=== PATIENT | female | born 1945 | race Caucasian/White ===

== ENCOUNTER 2019-07-16 11:18 | Observation (INO) | payer OTHER ==
[~2019-07-16] VITALS: Ht 154.9 cm; Wt 75.0 kg
[~2019-07-16 11:18] MED LIST: ALPR.5 PO; Cyclobenzaprine5 MG PO; GABA300 PO; HYDR1TAB94 PO; IBUP600 PO; Prednisone20 MG PO
[2019-07-16 12:14] LABS: BASOPHILS ABSOLUTE AUTO 0.06 K/mm3 (0.00-0.23); BASOPHILS PERCENT AUTO 1 % (0-2); EOSINOPHILS ABSOLUTE AUTO 0.16 K/mm3 (0.00-0.68); EOSINOPHILS PERCENT AUTO 2 % (0-6); Hematocrit 42.9 % (33.0-51.0); IMMATURE GRAN ABSOLUTE AUTO 0.01 K/mm3 (0.00-0.10); IMMATURE GRAN PERCENT AUTO 0 % (0-1); LYMPHOCYTES ABSOLUTE AUTO 2.59 K/mm3 (0.84-5.20); LYMPHOCYTES PERCENT AUTO 35 % (21-46); MONOCYTES PERCENT AUTO 9 % (4-13); Mean Corpuscular HGB 28.3 pg (26.0-34.0); Mean Corpuscular HGB Conc 32.6 g/dL (31.5-36.5); Mean Corpuscular Volume 87 fL (80-100); Mean Platelet Volume 10.6 fL (9.1-12.4); NEUTROPHILS ABSOLUTE AUTO 3.93 K/mm3 (1.96-9.15); NEUTROPHILS PERCENT AUTO 53 % (41-73); Platelet Count 268 K/mm3 (150-400); Red Blood Cell Count 4.94 M/mm3 (3.80-5.20); White Blood Cell Count 7.45 K/mm3 (4.00-11.30)
[2019-07-16 12:25] LABS: International Normalized Ratio 0.97; Prothrombin Time Results 10.3 Sec (9.7-11.5)
[2019-07-16 12:29] LABS: Albumin, Blood 3.8 g/dL (3.4-5.0); Bilirubin, Total 0.3 mg/dL (0.1-1.0); Bun/Creatinine Ratio 22.3 (12.0-20.0); Calcium, Blood 8.7 mg/dL (8.5-10.1); Creatinine, Blood 1.12 mg/dL (0.40-1.00); Potassium, Blood 3.5 mmol/L (3.5-5.5); Total Protein, Blood 7.8 g/dL (6.4-8.2)
[2019-07-16] MEDS ORDERED: HYDROCODONE-AC1 EAC1 PO (16:31)
[2019-07-16] MEDS ORDERED: NIFE30ER PO (16:49)
[2019-07-16] MEDS ORDERED: ASPI325 PO (16:51)
--- NOTE | 2019-07-16 16:55 | NUR ---
ER ADMIT- PT ARRIVED TO PCU 7 VIA GURNEY FROM ED, PT A SBA INTO BED. PT A/OX4, DENIES ANY COMPLAINTS. LS CLEAR, ON RA. TELE NSR AT 98. WORKFORCE PLANNING ANALYST EQUAL AND STRONG. PUPILES EQUAL. MOUTH SYMMENTRICAL. PT DOES REPORT CHRONIC INTERMITTENT NUMBNESS TO BILAT HANDS. AND SOME NEW NUMBNES TO RIGHT LEG. PT NOTED TO DRAG RIGHT FOOT SLIGHTLY. BP OF 156/104, PER DR LESLIE BP OK TO BE ELEVATED AT THIS TIME. MEDS VERIFIED WITH PHARMACY. PT ORIENTED TO ROOM AND CALL SYSTEM, CALL LGT IN REACH.
--- NOTE | 2019-07-16 16:59 | NUR ---
DR LESLIE IN TO SEE PT. PER DR LESLIE OK TO START BABY ASPIRIN AND HOME NIFEDIPINE.
[2019-07-17 04:31] LABS: CHOL/HDL RATIO 5.4; Cholesterol 253 mg/dL (50-200); HDL Cholesterol 47 mg/dL (>39); LDL/HDL RATIO 3.8; Low Density Lipoprotein Chol 180 mg/dL (0-110); Triglycerides 130 mg/dL (30-160); Very Low Density Lipoprot Chol 26 mg/dL (6-32)
--- NOTE | 2019-07-17 04:54 | NUR ---
SHIFT SUMMARY PT HAS REMAINED AOX4 THROUGHOUT SHIFT. PLEASANT AND COOPERATIVE WITH CARE. PT WITH SLIGHTLY ELEVATED BLOOD PRESSURE LAST NIGHT THAT DECREASED WITH REST AND ORDERED MEDICATIONS. PT REPORTED SOME ANXIETY THAT COINCIDED WITH BPs, ALSO DECREASED WITH ORDERED MEDICATIONS THAT PT TAKES AT BASELINE. ALL OTHER VSS. PT HAS REMAINED NEUROLOGICALLY INTACT WITH EXCEPTION OF R FOOT LAG OCCASIONALLY WITH AMBULATION. PT REPORTS SOME SLIGHT NUMBNESS TO R LEG. PT REPORTS NOT MUCH CHANGE FROM EARLIER IN THE DAY. PT AMBULATES WITH STANDBY ASSSIT TO RESTROOM WITHOUT DIFFICULTY. MEDICATED ONCE FOR PAIN THAT DECREASED WITH ORDERED MEDICATION. NO OTHER CHANGES NOTED FROM INITIAL ASSESSMENT. WILL CONTINUE TO MONITOR AND REPORT TO ONCOMING SHIFT RN. BED IN LOW POSITION, CALL LIGHT IN REACH.
--- NOTE | 2019-07-17 08:05 | NUR ---
AM NOTE. ASSUMED CARE OF PT APROX 0700, PT IS A&Ox4 AND IND IN THE ROOM. PT WAS ADMITTED FOR POSSIBLE CVA. PT HAD NUMBNESS TO HER RIGHT LEG. PT STATES THIS HAS IMPROVED AND WOULD ONLY CALL IT "WEAKNESS" AT THIS TIME. PT'S VS STABLE BUT PT A LITTLE HYPERTENSIVE AT 161/94, PROVIDER AWARE. NO EDEMA NOTED ON ASSESSMENT. L/S CLEAR T/O. BT PRESENT AND NORMOACTIVE. ABD IS SOFT AND NONTENDER TO PALP. PROVIDER IN THE ROOM, PT IS TO HAVE MRI TODAY AND POSSIBLE D/C HOME. WILL CONTINUE TO MONITOR.
[2019-07-17] MEDS ORDERED: ASPI81CH PO (11:16)
[2019-07-17] MEDS ORDERED: ATOR40TA PO (11:17)
[2019-07-17] MEDS ORDERED: HYDCHL25 PO (11:20)
--- NOTE | 2019-07-17 13:56 | NUR ---
PT D/C. PT D/C'D HOME AFTER PROVIDER GAVE PT AND SON MRI RESULTS. PT'S VS STABLE. PT DENIES ANY CHEST PAIN/PRESSURE N/V, HEADACHE OR SOB. PT GIVEN D/C INSTRUCTION AND EDUCATION. MEDICATIONS CALLED INTO PT'S PHARMACY OF CHOICE, MEDICATION EDUCATION PROVIDED TO PT. IV WAS REMOVED WNL. ALL OF PT'S BELONGINGS WERE PACKED AND SENT HOME WITH THE PT.
== END 2019-07-17 13:50 | disposition home or self-care (01) ==
LOC: ER 11:18 → PCU 11:19
PROVIDERS: Emergency Medicine; ADMIT Internal Medicine
DX: I63.81 Other cerebral infarction due to occlusion or stenosis of small artery (principal); I10 Essential (primary) hypertension; Z79.82 Long term (current) use of aspirin; Z79.899 Other long term (current) drug therapy; Z96.89 Presence of other specified functional implants
CPT/HCPCS: 36415; 70450; 70496; 70551; 80053; 80061; 85025; 85610; 93005; 93010; 93306; 96374; 97112; 97116; 97162; 97166; 97530; 99285-25; G0378; J2060; J7120; Q9967

== ENCOUNTER → 2023-05-04 | Outpatient (CLI) | payer OTHER ==
[~2023-05-04] MED LIST changes: +ASPI325 PO; +ASPI81CH PO; +ATOR40TA PO; +HYDCHL25 PO; +HYDROCODONE-AC1 EAC1 PO; +NIFE30ER PO
== END | disposition home or self-care (01) ==
LOC: LAB SHORT 15:11 → PLD 15:11
DX: D48.5 Neoplasm of uncertain behavior of skin (principal); L72.9 Follicular cyst of the skin and subcutaneous tissue, unspecified
CPT/HCPCS: 88304